=== PATIENT | male | born 2000 | race African-American/Black ===

== ENCOUNTER 2022-10-10 21:39 | Emergency (ER) | payer OTHER, SELFPAY ==
[~2022-10-10 21:39] MED LIST: Iopamidol-370 76% 500 ML 1 ML ONE
[2022-10-10] MEDS ORDERED: Ketorolac Tromethamine 30 MG/ML VIAL ONE (23:29)
[2022-10-10] MEDS ORDERED: Morphine 4 MG/ML VIAL ONE (23:29)
== END 2022-10-10 23:44 | disposition home or self-care (01) ==
LOC: ERS 21:39
DX: S32.028A Other fracture of second lumbar vertebra, initial encounter for closed fracture (principal); S32.038A Other fracture of third lumbar vertebra, initial encounter for closed fracture; S32.048A Other fracture of fourth lumbar vertebra, initial encounter for closed fracture; F17.210 Nicotine dependence, cigarettes, uncomplicated; V80.010A Animal-rider injured by fall from or being thrown from horse in noncollision accident, initial encounter
CPT/HCPCS: 71045; 74177; 96374; J1885; J2270; Q9967